=== PATIENT | female | born 1970 | race Caucasian/White ===

== ENCOUNTER → 2017-06-13 | Outpatient (CLI) | payer OTHER ==
[~2017-06-13] MED LIST: ALBU90OI6 INH; ALPR.5; ALPR.5 PO; CETI5; CLON.1 PO; CLON.5; CLON.5 PO; CYCL10; CYCL10 PO; Cyclobenzaprine5 MG PO; DICMIS75EC PO; DULO30; DULO30 PO; Diflucan150 MG PO; ESOM20; FLUSAL1005 IH; FLUSAL1005 INH; HYDACE10B; HYDACE5; HYDACE5 PO; IBUP400; META800 PO; METR250; NAPR500 PO; OMEP20ER; OMEP20ER PO; OXYACE5T PO; PARO10 PO; PROGESTERONE CREAM; PSEU120ER; PSEU120ER PO; Percocet 10-321 EACH PO; RANI150 PO; SPIHYD; SUDAFED PE PRE1 EAC1 PO; SULTRIDS PO; VERA120ERB; VERA120ERB PO; ZYRTEC10 M2 PO; Zithromax250 MG PO
== END ==
LOC: LAB 13:30 → LAB SHORT 13:30
DX: R10.2 Pelvic and perineal pain (principal)
CPT/HCPCS: 87086

== ENCOUNTER 2017-08-05 04:03 | Emergency (ER) | payer OTHER ==
[~2017-08-05] VITALS: Ht 160 cm; Wt 79.8 kg
[~2017-08-05 04:03] MED LIST changes: -Cyclobenzaprine5 MG PO
[2017-08-05] MEDS ORDERED: VERA120ERB PO (04:17)
[2017-08-05] MEDS ORDERED: DULO30 PO (04:17)
[2017-08-05] MEDS ORDERED: Cyclobenzaprine5 MG PO (04:59)
== END 2017-08-05 05:12 | disposition home or self-care (01) ==
LOC: ER 04:03
DX: S29.012A Strain of muscle and tendon of back wall of thorax, initial encounter (principal); J44.9 Chronic obstructive pulmonary disease, unspecified; F17.210 Nicotine dependence, cigarettes, uncomplicated; Z88.1 Allergy status to other antibiotic agents; Z88.0 Allergy status to penicillin; Z88.8 Allergy status to other drugs, medicaments and biological substances; Z79.899 Other long term (current) drug therapy; X58.XXXA Exposure to other specified factors, initial encounter
CPT/HCPCS: 71046; 93005; 93010; 99283

== ENCOUNTER → 2022-03-08 | Outpatient (CLI) | payer OTHER ==
[~2022-03-08] MED LIST changes: +Cyclobenzaprine5 MG PO; +ESTR2 TD; +VERA180ERB PO
== END ==
LOC: LAB SHORT 17:43 → LAB 17:43
DX: N39.0 Urinary tract infection, site not specified (principal)
CPT/HCPCS: 87077; 87086; 87186

== ENCOUNTER 2025-04-03 22:00 | Inpatient (IN) | payer OTHER ==
[~2025-04-03] VITALS: Ht 160 cm; Wt 77.1 kg
[~2025-04-03 22:00] MED LIST changes: +Cymbalta20 MG PO
[2025-04-03 22:48] LABS: BASOPHILS ABSOLUTE AUTO 0.06 K/mm3 (0.00-0.23); BASOPHILS PERCENT AUTO 1 % (0-2); EOSINOPHILS ABSOLUTE AUTO 0.14 K/mm3 (0.00-0.68); EOSINOPHILS PERCENT AUTO 2 % (0-6); Hematocrit 38.2 % (33.0-51.0); Hemoglobin 13.3 g/dL (11.5-16.0); IMMATURE GRAN ABSOLUTE AUTO 0.04 K/mm3 (0.00-0.10); IMMATURE GRAN PERCENT AUTO 1 % (0-1); LYMPHOCYTES ABSOLUTE AUTO 3.54 K/mm3 (0.84-5.20); LYMPHOCYTES PERCENT AUTO 43 % (21-46); MONOCYTES ABSOLUTE AUTO 0.84 K/mm3 (0.16-1.47); MONOCYTES PERCENT AUTO 10 % (4-13); Mean Corpuscular HGB Conc 34.8 g/dL (31.5-36.5); Mean Corpuscular Volume 92 fL (80-100); NEUTROPHILS ABSOLUTE AUTO 3.54 K/mm3 (1.96-9.15); NEUTROPHILS PERCENT AUTO 43 % (41-73); NRBC ABSOLUTE 0.00 K/mm3 (0.00-0.02); NRBC Auto 0.0 /100 WBC (0.0-0.2); Platelet Count 207 K/mm3 (150-400); RDW Coefficient Variation 12.3 % (11.7-14.2); RDW Standard Deviation 41.0 fL (35.1-46.3)
[2025-04-03 23:01] LABS: Alanine Aminotransfer (ALT/SGP 29.0 U/L (12-78); Albumin, Blood 3.5 g/dL (3.4-5.0); Albumin/Globulin Ratio 1.1 (0.8-1.8); Anion Gap 15.0 mmol/L (3-11); Aspartate Aminotrans (AST/SGOT 19.0 U/L (12-37); Bilirubin, Total 0.2 mg/dL (0.1-1.0); Blood Urea Nitrogen 15.0 mg/dL (8-24); CO2, Blood 23.0 mmol/L (21-32); Calcium, Blood 9.1 mg/dL (8.5-10.1); Chloride, Blood 104.0 mmol/L (98-108); Creatinine, Blood 0.91 mg/dL (0.40-1.00); Globulin, Blood 3.3 g/dL (2.2-4.0); Glucose, Blood 114.0 mg/dL (70-99); Potassium, Blood 3.5 mmol/L (3.5-5.5); Sodium, Blood 138.0 mmol/L (136-145); Total Protein, Blood 6.8 g/dL (6.4-8.2)
[2025-04-03] MEDS ORDERED: NS 1,000 ML IV SCH (23:10)
[2025-04-04] VITALS (8 sets, daily range): BP systolic 120–190; BP diastolic 75–104
[2025-04-04] MEDS ORDERED: Ondansetron HCl 2 MG / ML 2ML Vial IV PRN (00:35)
[2025-04-04] MEDS ORDERED: FLU VACC TS2025-26(6MOS UP)/PF 45 MCG/0.5 ML SYRINGE IM SCH (00:35)
[2025-04-04 01:25] LABS: BASOPHILS ABSOLUTE AUTO 0.04 K/mm3 (0.00-0.23); BASOPHILS PERCENT AUTO 1 % (0-2); EOSINOPHILS ABSOLUTE AUTO 0.06 K/mm3 (0.00-0.68); EOSINOPHILS PERCENT AUTO 1 % (0-6); Hematocrit 34.8 % (33.0-51.0); Hemoglobin 11.9 g/dL (11.5-16.0); IMMATURE GRAN ABSOLUTE AUTO 0.02 K/mm3 (0.00-0.10); IMMATURE GRAN PERCENT AUTO 0 % (0-1); LYMPHOCYTES ABSOLUTE AUTO 2.25 K/mm3 (0.84-5.20); LYMPHOCYTES PERCENT AUTO 37 % (21-46); MONOCYTES ABSOLUTE AUTO 0.50 K/mm3 (0.16-1.47); MONOCYTES PERCENT AUTO 8 % (4-13); Mean Corpuscular HGB Conc 34.2 g/dL (31.5-36.5); Mean Corpuscular Volume 94 fL (80-100); NEUTROPHILS ABSOLUTE AUTO 3.27 K/mm3 (1.96-9.15); NEUTROPHILS PERCENT AUTO 53 % (41-73); NRBC ABSOLUTE 0.00 K/mm3 (0.00-0.02); NRBC Auto 0.0 /100 WBC (0.0-0.2); Platelet Count 174 K/mm3 (150-400); RDW Coefficient Variation 12.2 % (11.7-14.2); RDW Standard Deviation 42.4 fL (35.1-46.3)
[2025-04-04] MEDS ORDERED: ALPR.5 PO (01:34)
[2025-04-04] MEDS ORDERED: ALBU2.5V5 (01:36)
[2025-04-04 01:41] LABS: Alanine Aminotransfer (ALT/SGP 24 U/L (12-78); Albumin, Blood 3.1 g/dL (3.4-5.0); Albumin/Globulin Ratio 1.1 (0.8-1.8); Anion Gap 10 mmol/L (3-11); Aspartate Aminotrans (AST/SGOT 16 U/L (12-37); Bilirubin, Total 0.2 mg/dL (0.1-1.0); Blood Urea Nitrogen 12 mg/dL (8-24); CHOL/HDL RATIO 6.2; CO2, Blood 24 mmol/L (21-32); Calcium, Blood 8.2 mg/dL (8.5-10.1); Chloride, Blood 108 mmol/L (98-108); Cholesterol 229 mg/dL (50-200); Creatinine, Blood 0.79 mg/dL (0.40-1.00); Globulin, Blood 2.8 g/dL (2.2-4.0); Glucose, Blood 127 mg/dL (70-99); HDL Cholesterol 37 mg/dL (>39); LDL/HDL RATIO 4.1; Low Density Lipoprotein Chol 151 mg/dL (0-110); Magnesium, Blood 1.7 mg/dL (1.6-2.4); Potassium, Blood 3.9 mmol/L (3.5-5.5); Sodium, Blood 138 mmol/L (136-145); Total Protein, Blood 5.9 g/dL (6.4-8.2); Triglycerides 205 mg/dL (30-160); Very Low Density Lipoprot Chol 41 mg/dL (6-32)
--- NOTE | 2025-04-04 06:03 | NUR ---
SHIFT SUMMARRY; AFTER ADMIT, PATIENT WAS ABLE TO GET SOME SLEEP, HER 2ND TRIPONION WAS 148, WHICH WAS CALLED TO HOSPITALIST, ORDER TO MAKE SURE SHE REMAINED NPO AFTER GETTING HER ASPRIN. LATIAIES CP, TELE SR 76. PATIENT HAS ALOT OF ANXIETY AND COULD BENEFIT FROM COUNSELING.
[2025-04-04 07:35] LABS: Anti-Xa UFH, PHA Monitoring <0.10 IU/mL; Prothrombin Time Results 10.7 Sec (9.7-11.5)
[2025-04-04] MEDS ORDERED: Heparin Sodium 5000 Units/ML 1ML MDV IV ONE (08:00)
[2025-04-04] MEDS ORDERED: Heparin Sodium,Porcine/0.5 NS 500 ML IV SCH (08:00)
[2025-04-04] MEDS ORDERED: Enoxaparin 40 MG/0.4 ML SYR SC SCH (09:00)
[2025-04-04] MEDS ORDERED: Heparin Sodium 1000 Units/ML 10ML MDV ONE ×2 (09:31→10:31)
[2025-04-04] MEDS ORDERED: Nitroglycerin 2 MG/20 ML BTL ONE (09:31)
[2025-04-04] MEDS ORDERED: NS 250 ML IV ONE (09:31)
[2025-04-04] MEDS ORDERED: NS 1,000 ML IV ONE ×2 (09:31→09:36)
[2025-04-04] MEDS ORDERED: Verapamil HCL 2.5 MG/ML 2ML Injection ONE (09:31)
[2025-04-04] MEDS ORDERED: FentaNYL Citrate 50 MCG/ML 2 ML Injection ONE (09:40)
[2025-04-04] MEDS ORDERED: Midazolam HCl 1MG / ML 2ML Vial ONE (09:40)
--- NOTE | 2025-04-04 10:34 | NUR ---
PT STARTED ON HEPARIN GTT 0830 AFTER INITIAL BOLUS 3750UNITS AND PLAVIX RESTARTED. CARDIO CONSULT CALLED IN- DR GREEN IN TO EVAL PT APPROX 0840, PLAN TO TAKE PT TO [facility] FOR ANGIO. PT HAS DENIES ANY CHEST PAIN OR PRESURE THAT BROUGHT HER IN . INSTRUCTED TO CALL RN SHOULD CP RETURN. TELE SR 80'S. PT AMBULATED TO BATHROOM SBA GOOD STRENGTH, STEADY ON FEET. PT PICKED UP FOR [facility] IN WHEELCHAIR AT 0950, WILL BE RECOVERING IN PCU. BELONGINGS TAKEN TO PCU. WILL CALL RN TO RN REPORT
[2025-04-04] MEDS ORDERED: NS 1,000 ML IV SCH ×2 (11:20→12:00)
[2025-04-04] MEDS ORDERED: ALBU90OI INH (12:38)
[2025-04-04] MEDS ORDERED: Albuterol HFA200 ACT/6.7 GM INH INH PRN (13:25)
[2025-04-04] MEDS ORDERED: DULoxetine HCL 20 MG Cap DR PO SCH (14:00)
--- NOTE | 2025-04-04 19:24 | NUR ---
SHIFT SUMMARY PATIENT AOX4 ABLE TO MAKE NEEDS KNOWN DENIES SOB DID HAVE SOME HEART BURN POST CATH WITH IMPROVEMENT WITH TUMS. RIGHT RADIAL SITE IMPROVING WITH DECEAESED SWELLING AND DECREASED CYANOSIS. TR BANDS OFF AT 17:15. PATIENT STILL HAS PETECHIAE. PATIENT HAD SOME EPISODES OF UNSUSTAINED ASYMPTOMATIC BRADYCARDIA IN TO THE LOW 40S AND HIGH 38S A FEW TIMES AND HIGH BLOOD PRESSURE DR. KING AWARE. PATIENT INDEPENDENT TO THE RESTROOM TOLERATING MEALS.
--- NOTE | 2025-04-04 20:47 | NUR ---
ASSUMPTION OF CARE THIS RN ASSUMED CARE OF PATIENT AT 1900. BEDSIDE SHIFT REPORT DONE WITH RASHI RN TO ASSESS RT RADIAL ANGIO SITE. WRIST AND FOREARM TENDER AND FIRM TO PALPATION BUT NO REPORTED CHANGES SINCE RECOVERING TR BAND. PROXIMAL TO PUNCTURE SITE WHERE TR BAND WAS THERE IS AN AREA OF PETECHIA, WELL DISTAL TO SITE ON HAND. REPORTED [address] FOR EXTENDED PERIOD. RADIAL PULSE IS PALPATED. ARMBOARD IN PLACE. AT SHIFT CHANGE SBP 150'S. SB ON MONITOR WITH HR 40-60. PT DENIES CHEST PAIN/PRESSURE, SOB, AND DIZZINESS AT REST AND WITH ACTIVITY. INDEPENDENT WITH ADL'S. COMPLETED X1L NS SHORTLY AFTER SHIFT CHANGE. NOC METOPROLOL DOSE HELD D/T HR MAINTAINING 40-50'S. AT 1999 BP NOTED TO BE 190/100. PROVIDER ETHAN CALLED WITH ORDERS FOR X1 PO AMPLODIPINE AND PRN PO HYDRALAZINE. MEDICATED PER EMAR. PT DENIES HEADACHE. NO CHANGES TO ANGIO SITE. SB ON TELE.
[2025-04-05] VITALS (9 sets, daily range): BP systolic 144–166; BP diastolic 94–107
--- NOTE | 2025-04-05 05:16 | NUR ---
SHIFT SUMMARY SEE PREVIOUS NOTE NO CHANGES TO NEURO. NO CHANGES TO RT RADIAL ANGIO SITE. ARMBOARD IN PLACE. BP RESPONDED WELL TO PO BP MEDICATIONS. MEDICATED PER EMAR FOR PAIN/ANXIETY. INDEPENDENT WITH ADLS. SB/SR ON MONITOR. DENIES CHEST PAIN/PRESSURE. BED IN LOWEST POSITION AND CALL LIGHT WITHIN REACH. THIS RN WILL REPORT TO ONCOMING DAYSHIFT RN.
--- NOTE | 2025-04-05 12:17 | NUR ---
PT UPDATE CALLED MD REGARDING PT HAVING BREIF CHEST PAIN. MD IS AWARE AND NO NEW ORDERS AT THIS TIME.
--- NOTE | 2025-04-05 16:58 | NUR ---
END OF SHIFT SUMMARY PT IS A/O X4 ABLE TO MAKE NEEDS KNOWN AND CAN MOVE EXTREMITIES EQUALLY AND BILATERALLY. PT IS AFEBRILE. PT IS COOPERATIVE BUT ANXIOUS TO BE IN THE HOSPITAL. CONTINUOUS CARDAIC MONITORING IN PLACE SHOWING SR WITH A HR IN THE 50'S-60'S, MAP >65. SBP 160'S-140'S. R RADIAL SITE STILL HAS PETECHIAE AROUND SITE AND SOME SLIGHT BRUISING. PT IS ON RA WITH SP02 >92%. PT IS ON A CARDIAC DIET AND TOLERATES PO INTAKE WELL. PT IS IND TO THE BATHROOM. PIV IS IN PLACE TO THE [facility]. BED IS IN LOWEST POSITION, CALL LIGHT IN REACH, WILL REPORT TO ONCOMING SHIFT.
[2025-04-06 04:21] VITALS: BP 180/106
--- NOTE | 2025-04-06 04:51 | NUR ---
SHIFT SUMMARY NO CHANGES TO NEURO. NO CHANGES TO RT RADIAL ANGIO SITE. ARMBOARD IN PLACE. INDEPENDENT WITH ADLS WITH STEADY GAIT. SB/SR ON MONITOR WITH HR MOSTLY 50-60, WITH OCCASIONAL BRIEF DROPS TO THE 40S. PT WITH ELEVATED SBP IN THE 180 S, MEDICATED PER EMAR FOR HTN. ON RA WITH SPO2 >92%. DENIES CHEST PAIN/PRESSURE, DIZZINESS, OR SOB. BED IN LOWEST POSITION AND CALL LIGHT WITHIN REACH. THIS RN WILL REPORT TO ONCOMING DAYSHIFT RN.
[2025-04-06 07:51] VITALS: BP 155/105
[2025-04-06 09:39] VITALS: BP 140/91
[2025-04-06] MEDS ORDERED: AMLO10 PO (12:46)
[2025-04-06] MEDS ORDERED: ASPI81CH PO (12:56)
[2025-04-06] MEDS ORDERED: ATOR40TA PO (12:57)
[2025-04-06] MEDS ORDERED: CARV6.25 PO (12:58)
[2025-04-06] MEDS ORDERED: CLOP75 PO (12:59)
[2025-04-06] MEDS ORDERED: EZET10 PO (12:59)
[2025-04-06] MEDS ORDERED: IRBE150 PO (12:59)
[2025-04-06] MEDS ORDERED: SPIR25 PO (13:00)
--- NOTE | 2025-04-06 14:02 | NUR ---
DISCHARGE INSTRUCTIONS PROVIDED AND EDUCATED ON. MEDICATIONS FAXED TO [facility]. AWAITING RIDE HOME.
--- NOTE | 2025-04-06 14:30 | NUR ---
PT DISCHARGED TO HOME. ALL VALUABLES RETURNED AND SENT HOME WITH THE PT.
== END 2025-04-06 14:28 | disposition home or self-care (01) | DRG 322 ==
LOC: ER 22:00 → MEDS 22:01 → ERHOLD 22:01 → MEDS 04-04 01:21 → PCU 04-04 10:02
PROVIDERS: Student in an Organized Health Care Education/Training Program; ADMIT Student in an Organized Health Care Education/Training Program
PROC: 027035Z Dilation of Coronary Artery, One Artery with Two Drug-eluting Intraluminal Devices, Percutaneous Approach (ICD-10-PCS; principal; 2025-04-04)
PROC: B2111ZZ Fluoroscopy of Multiple Coronary Arteries using Low Osmolar Contrast (ICD-10-PCS; 2025-04-04)
DX: I21.4 Non-ST elevation (NSTEMI) myocardial infarction (principal); J44.89 Other specified chronic obstructive pulmonary disease; R00.1 Bradycardia, unspecified; I10 Essential (primary) hypertension; E78.00 Pure hypercholesterolemia, unspecified; I25.10 Atherosclerotic heart disease of native coronary artery without angina pectoris; K21.9 Gastro-esophageal reflux disease without esophagitis; F17.290 Nicotine dependence, other tobacco product, uncomplicated; Z88.1 Allergy status to other antibiotic agents; Z88.8 Allergy status to other drugs, medicaments and biological substances; Z88.0 Allergy status to penicillin; Z87.718 Personal history of other specified (corrected) congenital malformations of genitourinary system
CPT/HCPCS: 36415; 71046; 76937; 80053; 80061; 83036; 83735; 84484; 85025; 85347; 85520; 85610; 85730; 93005; 93010; 93306; 93454; 94760; 96360; 99152; 99153; 99285-25; A9270; C1725; C1769; C1874; C1887; C1894; C9600; G0378; J1644; J2250; J3010; J3246; J7030; J7050; Q9967